=== PATIENT | female | born 1950 ===

== ENCOUNTER 2016-08-11 08:40 | Outpatient (RCR) | payer OTHER | END 2016-08-19 | disposition home or self-care (01) | LOC: PTY 08:40 | DX: M25.511 Pain in right shoulder (principal) | CPT/HCPCS: 97110; 97140; 97161; G0283 ==

== ENCOUNTER 2016-08-21 09:40 | Outpatient (RCR) | payer OTHER | END 2016-09-19 | disposition home or self-care (01) | LOC: PTY 09:40 | DX: M25.511 Pain in right shoulder (principal) | CPT/HCPCS: 97110; 97140; G0283 ==